=== PATIENT | female | born 1930 | race Two or more races ===

== ENCOUNTER 2016-11-02 11:14 | Emergency (ER) | payer OTHER ==
[~2016-11-02] VITALS: Ht 157.5 cm; Wt 56.7 kg
[~2016-11-02 11:14] MED LIST: AMLO1TAB15 PO; ATEN25TA PO; HYDR-971 PO; IBUP-1027 PO; LANS30CA PO; NAPR375T3 PO; OMEP40CA5 PO; OXYC-323 PO; PANT40TA3 PO; SIMV10TA3 PO; SIMV20TA3 PO; TRAM50TA PO; WARF5TAB PO; WARF5TAB7 PO
[2016-11-02 11:58] LABS: BASO # 0.1 x10^3/uL (0.0-0.2); BASO % 1 % (0-3); EOS % 2 % (0-3); HEMATOCRIT 37.8 % (36.0-47.0); HEMOGLOBIN 12.4 g/dL (12.0-15.5); LYMPH # 1.8 x10^3/uL (1.0-4.8); LYMPH % 23 % (24-48); MEAN CORPUSCULAR HEMOGLOBIN 28 pg (25-35); MEAN CORPUSCULAR HGB CONC 33 g/dL (31-37); MEAN CORPUSCULAR VOLUME 85 fL (79-100); MONO % 8 % (0-9); NEUT % 67 % (31-73); PLATELET COUNT 308 x10^3/uL (140-400); RED BLOOD COUNT 4.44 x10^6/uL (3.50-5.40); RED CELL DISTRIBUTION WIDTH 17.3 % (11.5-14.5); WHITE BLOOD COUNT 7.9 x10^3/uL (4.0-11.0)
[2016-11-02] MEDS ORDERED: HYDROCODONE/APAP 5/325MG TABLET. PO ONE (12:00)
[2016-11-02 12:04] LABS: CALCIUM 9.9 mg/dL (8.5-10.1); CREATININE 0.9 mg/dL (0.6-1.0); GFR 59.2; POTASSIUM 3.2 mmol/L (3.5-5.1)
--- NOTE | 2016-11-02 12:11 | RAD ---
EXAM: Chest, single view. HISTORY: Fall. COMPARISON: 02/14/2016. FINDINGS: A frontal view of the chest is obtained. There is no infiltrate, effusion or pneumothorax. The heart is normal in size. IMPRESSION: No acute pulmonary finding.
[2016-11-02] MEDS ORDERED: IOHEXOL 300 MG/ML 75 ML VIAL IV ONE (12:45)
--- NOTE | 2016-11-02 12:50 | RAD ---
EXAM: Head and cervical spine CT without contrast. HISTORY: Fall. TECHNIQUE: Computed tomographic images of the head were obtained without contrast. One or more of the following individualized dose reduction techniques were utilized for this examination: 1. Automated exposure control. 2. Adjustment of the mA and/or kV according to patient size. 3. Use of iterative reconstruction technique. COMPARISON: None. FINDINGS: Head: There is no hemorrhage. There is no mass effect or midline shift. There is no hydrocephalus. There are subtle areas of hypodensity within the cerebral white matter, likely due to chronic small vessel disease. There is a punctate calcification within the left occipital lobe cortex. No orbital lesion is seen. The paranasal sinuses and mastoid air cells are unremarkable. No calvarial lesion is seen. Cervical spine: There is slight anterolisthesis of C2 on C3 and retrolisthesis of C3 on C4. There is degenerative endplate remodeling with disc space narrowing and osteophytosis predominantly at C3-C4. A displaced fracture is seen. At C2-C3, there is a posterior central to left paracentral disc protrusion and osteophyte complex. There is no stenosis. At C3-C4, there is a posterior central disc protrusion and osteophyte complex superimposed on a disc bulge and endplate osteophytosis. There is uncovertebral arthropathy. There is mild right and moderate left foraminal stenosis. There is mild central canal stenosis. At C4-C5, there is a disc bulge and endplate remodeling. There is mild facet arthropathy. There is mild left foraminal stenosis. At C5-C6, there is a disc bulge. There is mild facet arthropathy. There is no stenosis. At C6-C7, there is a disc bulge. There is no stenosis. IMPRESSION: 1. No acute intracranial finding or evidence of acute cervical spine trauma. 2. Subtle areas of hypodensity within the cerebral white matter, likely due to chronic small vessel disease. 3. Multilevel degenerative change within the cervical spine, predominantly at C3-C4. This described in detail above.
--- NOTE | 2016-11-02 12:56 | RAD ---
EXAM: Abdomen and pelvis CT with intravenous contrast. HISTORY: Fall. TECHNIQUE: Computed tomographic images of the abdomen and pelvis were obtained following the administration of 60 cc Omnipaque 300 intravenous contrast. Multiplanar reformatting was performed. COMPARISON: 07/23/2015. FINDINGS: Evaluation of the lower thorax demonstrates left lower lobe groundglass opacity likely due to atelectasis. There is a small right diaphragmatic hernia containing fat a portion of the wall of the hepatic flexure of the colon. There is a tiny hiatal hernia. No focal hepatic lesion is seen. The gallbladder, spleen and adrenal glands are unremarkable. There is a calcification within the pancreatic body, vascular due to sequela of chronic pancreatitis. There are multiple small renal cysts. There is a 1.2 cm hypodense lesion within the anterior lower mid zone of the left kidney, with attenuation slightly greater than a simple cyst. There is renal cortical scarring. There is no hydronephrosis. The bladder is unremarkable. The appendix is normal in appearance. There is distal colonic diverticulosis without diverticulitis. There is no bowel obstruction. There is aortic and biiliac atherosclerosis. The uterus is surgically absent. No pathologically enlarged lymph node is seen. There are degenerative changes involving the spine. There are bone islands within L2 and L5. There is a hemangioma within T11. IMPRESSION: 1. No acute abdominal or pelvic finding. 2. Multiple small suspected renal cysts, one of which within the left kidney measures 1.2 cm with attenuation slightly greater than simple fluid. This may be a complex cyst. Renal sonography may be useful to confirm benignity. 3. Colonic diverticulosis. 4. Small right diaphragmatic hernia containing fat and a portion of the wall of the hepatic flexure of the colon. PQRS Compliance Statement: One or more of the following individualized dose reduction techniques were utilized for this examination: 1. Automated exposure control 2. Adjustment of the mA and/or kV according to patient size 3. Use of iterative reconstruction technique
[2016-11-02] MEDS ORDERED: ACET-704 PO (13:34)
--- NOTE | 2016-11-02 13:34 | PHYS DOC ---
Past Medical History Past Medical History: Cancer, High Cholesterol, Hypertension Past Surgical History: No Surgical History Additional Past Surgical Histo: Left mastectomy; Left hip;Left wrist Alcohol Use: None Drug Use: None Adult General Chief Complaint Chief Complaint: MECHANICAL FALL HPI HPI Patient is a 86 year old female who presents status post fall. She reports she had gotten up in her room this morning when her left leg gave out (has h/o problems with that leg), causing her to fall. No loss consciousness, she is unsure if she hit her head. She presents now with pain in her lower back, her neck, her right flank. She has not taken anything for pain. She does take Plavix but no anticoagulants (warfarin listed on med list is incorrect). Review of Systems Review of Systems Constitutional: Denies fever or chills Eyes: Denies change in visual acuity or eye pain HENT: Denies nasal congestion or sore throat Respiratory: Denies cough or shortness of breath Cardiovascular: Denies chest pain GI: Denies abdominal pain, nausea, vomiting, bloody stools or diarrhea : Denies dysuria or hematuria Musculoskeletal: Neck pain, low back pain, R flank pain Integument: Denies rash or skin lesions Neurologic: Denies headache, focal weakness or sensory changes Current Medications Current Medications Current Medications Medications (Trade) Dose Ordered Sig/Brennan Start Time Stop Time Status Last Admin Dose Admin Acetaminophen/ Hydrocodone Bitart (Lortab 5/325) 1 tab 1X ONCE 11/02/16 12:00 11/02/16 12:01 DC 11/02/16 11:57 1 TAB Iohexol (Omnipaque 300 Mg/ml) 75 ml 1X ONCE 11/02/16 12:45 11/02/16 12:46 DC 11/02/16 12:40 75 ML Potassium Chloride (Klor-Con) 40 meq 1X ONCE 11/02/16 14:15 11/02/16 14:15 DC Allergies Allergies Allergies Coded Allergies Type Severity Reaction Last Updated Verified No Known Drug Allergies 06/23/14 No Physical Exam Physical Exam Constitutional: Well developed, well nourished, no acute distress, non-toxic appearance HENT: Normocephalic, atraumatic, bilateral external ears normal Eyes: PERRL, EOMI, conjunctiva normal, no discharge Neck: Normal range of motion, no stridor. No midline TTP, no stepoff Cardiovascular: Heart rate normal, regular rhythm, no murmur Lungs & Thorax: Bilateral breath sounds clear to auscultation Abdomen: Bowel sounds normal, soft, non-distended, no TTP; R flank TTP, no skin lesion, no deformity noted Skin: Warm, dry, no erythema, no rash Back: Mild generalized lumbar tenderness, no stepoff or deformity noted; Extremities: LLE slightly shorter than RLE, no external rotation (recent L hip surgery); otherwise extremities without deformity or point TTP; distal pulses intact throughout Neurologic: Alert and oriented X 3, GCS 15, CN II-XII grossly intact, strength intact and symmetrical throughout, sensation to light touch intact throughout, no dystaxia noted Psychologic: Affect normal, judgement normal, mood normal Current Patient Data Vital Signs Vital Signs Date Time Temp Pulse Resp B/P Pulse Ox O2 Delivery O2 Flow Rate FiO2 11/02/16 13:40 75 20 152/77 100 Room Air 11/02/16 11:40 97.8 97.8 Lab Values Laboratory Tests Test 11/02/16 11:35 White Blood Count 7.9x10^3/uL (4.0-11.0) Red Blood Count 4.44x10^6/uL (3.50-5.40) Hemoglobin 12.4g/dL (12.0-15.5) Hematocrit 37.8% (36.0-47.0) Mean Corpuscular Volume 85fL (79-100) Mean Corpuscular Hemoglobin 28pg (25-35) Mean Corpuscular Hemoglobin Concent 33g/dL (31-37) Red Cell Distribution Width 17.3% (11.5-14.5) H Platelet Count 308x10^3/uL (140-400) Neutrophils (%) (Auto) 67% (31-73) Lymphocytes (%) (Auto) 23% (24-48) L Monocytes (%) (Auto) 8% (0-9) Eosinophils (%) (Auto) 2% (0-3) Basophils (%) (Auto) 1% (0-3) Neutrophils # (Auto) 5.3x10^3uL (1.8-7.7) Lymphocytes # (Auto) 1.8x10^3/uL (1.0-4.8) Monocytes # (Auto) 0.6x10^3/uL (0.0-1.1) Eosinophils # (Auto) 0.1x10^3/uL (0.0-0.7) Basophils # (Auto) 0.1x10^3/uL (0.0-0.2) Prothrombin Time 13.0SEC (11.7-14.0) Prothrombin Time INR 1.0 (0.8-1.1) Sodium Level 142mmol/L (136-145) Potassium Level 3.2mmol/L (3.5-5.1) L Chloride Level 102mmol/L (98-107) Carbon Dioxide Level 32mmol/L (21-32) Anion Gap 8 (6-14) Blood Urea Nitrogen 11mg/dL (7-20) Creatinine 0.9mg/dL (0.6-1.0) Estimated GFR (Cockcroft-Gault) 59.2 Glucose Level 147mg/dL (70-99) H Calcium Level 9.9mg/dL (8.5-10.1) Laboratory Tests 11/02/16 11:35 Laboratory Tests 11/02/16 11:35 EKG EKG [] Radiology/Procedures Radiology/Procedures CT head and c-spine: IMPRESSION: 1. No acute intracranial finding or evidence of acute cervical spine trauma. 2. Subtle areas of hypodensity within the cerebral white matter, likely due to chronic small vessel disease. 3. Multilevel degenerative change within the cervical spine, predominantly at C3-C4. This described in detail above. CT A/P: IMPRESSION: 1. No acute abdominal or pelvic finding. 2. Multiple small suspected renal cysts, one of which within the left kidney measures 1.2 cm with attenuation slightly greater than simple fluid. This may be a complex cyst. Renal sonography may be useful to confirm benignity. 3. Colonic diverticulosis. 4. Small right diaphragmatic hernia containing fat and a portion of the wall of the hepatic flexure of the colon. CXR: IMPRESSION: No acute pulmonary finding. Course & Med Decision Making Course & Med Decision Making Pertinent Labs and Imaging studies reviewed. (See chart for details) Patient is 86-year-old female who presents status post mechanical fall. Will obtain CT head and C-spine, CT abdomen/pelvis to my chest x-ray to evaluate for serious injury. Basic labs ordered. PT/INR ordered as med list has warfarin listed, however confirmed with family that she does not actually take warfarin but takes Plavix instead. Oral pain medication ordered. Imaging results as above , no significant injury noted. Discussed results with patient and family. Patient feeling much better at this time. Will discharge home with instructions for follow-up and return precautions. Dragon Disclaimer Dragon Disclaimer This electronic medical record was generated, in whole or in part, using a voice recognition dictation system. Departure Departure Impression: Primary Impression: Fall Disposition: HOME, SELF-CARE Condition: IMPROVED Referrals: KAUSHIK MONTEIRO MD (PCP) Patient Instructions: Fall Prevention and Home Safety Additional Instructions: Thank you for allowing us to provide care today in the Emergency Department. Take the provided medication as directed. Use caution when taking this medication as it can make you drowsy. Schedule a follow up appointment with your primary care doctor. Return promptly to the Emergency Department if you develop any new or concerning symptoms. Scripts Acetaminophen With Codeine (Tylenol With Codeine #3 Tablet)1 Each Tablet1 Tab PO PRN Q6HRS PRN PAIN #15 TAB Prov:MARV CDAET MD 11/02/16 MARV CADET MD Nov 02, 2016 13:34
[2016-11-02 13:40] VITALS: BP 152/77
[2016-11-02] MEDS ORDERED: POTASSIUM CHLORIDE 20 MEQ TABLET.ER. PO ONE (14:15)
== END 2016-11-02 13:50 | disposition home or self-care (01) ==
LOC: ER 11:14
DX: M54.5 Low back pain (principal); M54.2 Cervicalgia; R10.9 Unspecified abdominal pain; E78.00 Pure hypercholesterolemia, unspecified; I10 Essential (primary) hypertension; Z79.01 Long term (current) use of anticoagulants; W18.39XA Other fall on same level, initial encounter; Y93.89 Activity, other specified; Y92.89 Other specified places as the place of occurrence of the external cause; Y99.8 Other external cause status
CPT/HCPCS: 36415; 70450; 71010; 72125; 74177; 80048; 85027; 85610; 99285; Q9967

== ENCOUNTER → 2016-12-16 | Outpatient (CLI) | payer OTHER ==
[~2016-12-16] MED LIST changes: +ACET-704 PO; +WARF-78 PO; -WARF5TAB PO
--- NOTE | 2016-12-16 11:20 | RAD ---
DATE: 12/16/2016 EXAM: DIGITAL SCREEN RT W/CAD HISTORY: Routine screening, history of left mastectomy COMPARISON: 12/17/2015 This study was interpreted with the benefit of Computerized Aided Detection (CAD). FINDINGS: Breast Density: SCATTERED The breast parenchyma shows scattered fibroglandular densities. Breast parenchyma level B. There are no dominant suspicious masses, suspicious microcalcifications or evidence of architectural distortion. Benign-appearing calcifications identified in the right breast. IMPRESSION: Benign findings BI-RADS CATEGORY: 2 BENIGN FINDING RECOMMENDED FOLLOW-UP: 12M 12 MONTH FOLLOW-UP PQRS compliance statement: Patient information was entered into a reminder system with a target due date 12/16/2017 for the next mammogram. Mammography is a sensitive method for finding small breast cancers, but it does not detect them all and is not a substitute for careful clinical examination. A negative mammogram does not negate a clinically suspicious finding and should not result in delay in biopsying a clinically suspicious abnormality. "Our facility is accredited by the [employer] Mammography Program."
== END | disposition home or self-care (01) ==
LOC: MAMMO 10:09
PROVIDERS: ATTEND Family Medicine
DX: Z12.31 Encounter for screening mammogram for malignant neoplasm of breast (principal)
CPT/HCPCS: G0202; 77067

== ENCOUNTER 2017-03-25 18:05 | Inpatient (IN) | payer OTHER ==
[~2017-03-25] VITALS: Ht 157.5 cm; Wt 50.8 kg
[~2017-03-25 18:05] MED LIST changes: +AMLO10TA2 PO; +APIX5TAB PO; +CLOP75TA PO; +DILT240C2 PO; +PANT40TA5 PO; +VANC125C2 PO; +WARF1TAB74 PO
--- NOTE | 2017-03-25 19:42 | PHYS DOC ---
Past Medical History Past Medical History: Cancer, CHF, GERD, High Cholesterol, Hypertension Additional Past Medical Histor: pvd BREASTS CA BACK PAIN CATARACTS, DVT Past Surgical History: Hysterectomy Additional Past Surgical Histo: Left mastectomy; Left hip;Left wrist, Vascular surgery L leg, DVT R leg Alcohol Use: None Drug Use: None Adult General Chief Complaint Chief Complaint: WOUND CHECK HPI HPI Patient is a 86 year old female who presents with complaint of bleeding from her wound site. The patient was brought to the emergency department by EMS after patient had developed complications of bleeding from her wound VAC site. The patient was admitted to the hospital earlier this month where she was treated for an arterial occlusion in her right lower extremity with a right embolectomy done by vascular surgery. The patient developed complications of right lower extremity compartment syndrome requiring a 4 compartment fasciotomy. Patient was discharged 2 days ago with wound VAC in place. Patient was evaluated by her home health nurse after patient reported complications of a leak from her wound VAC. This progressed to bleeding at the wound site. The patient contacted Dr. Castro of vascular surgery who advised the patient come into the emergency department for evaluation. Patient denies any other symptoms at this time including shortness of breath, chest pain, lower extremity pain, or fever. Review of Systems Review of Systems Constitutional: Denies fever or chills [] Eyes: Denies change in visual acuity, redness, or eye pain [] HENT: Denies nasal congestion or sore throat [] Respiratory: Denies cough or shortness of breath [] Cardiovascular: Denies chest pain or edema [] GI: Denies abdominal pain, nausea, vomiting, bloody stools or diarrhea [] : Denies dysuria or hematuria [] Musculoskeletal: Denies back pain or joint pain [] Integument: Wound VAC not working, bleeding at one site [] Neurologic: Denies headache, focal weakness or sensory changes [] Allergies Allergies Allergies Coded Allergies Type Severity Reaction Last Updated Verified No Known Drug Allergies 03/16/17 No Physical Exam Physical Exam Constitutional: Alert, afebrile, no acute distress. [] HENT: Normocephalic, atraumatic, bilateral external ears normal, oropharynx moist, no oral exudates, nose normal. [] Eyes: PERRLA, EOMI, conjunctiva normal, no discharge. [] Neck: Normal range of motion, no tenderness, supple, no stridor. [] Cardiovascular:Heart rate regular rhythm, no murmur [] Lungs & Thorax: Bilateral breath sounds clear to auscultation [] Abdomen: Bowel sounds normal, soft, no tenderness, no masses, no pulsatile masses. [] Skin: Warm, dry, no erythema, no rash. [] Back: No tenderness, no CVA tenderness. [] Extremities: Right lower extremity Medial and lateral fasciotomy incision sites with overlying wound VAC, partial suction present with use of wound VAC, source of leak not visible on exam, moderate amount of collecting blood along the medial aspect of the dressings, capillary refill less than 2 seconds in all 5 digits of right foot. [] Neurologic: Alert and oriented X 3, normal motor function, normal sensory function, no focal deficits noted. [] Current Patient Data Vital Signs Vital Signs Date Time Temp Pulse Resp B/P (MAP) Pulse Ox O2 Delivery O2 Flow Rate FiO2 03/25/17 18:07 98.5 87 18 119/77 (91) 98 Room Air 98.5 EKG EKG Not performed [] Radiology/Procedures Radiology/Procedures Not performed [] Course & Med Decision Making Course & Med Decision Making Pertinent Labs and Imaging studies reviewed. (See chart for details) I contacted Dr. Castro regarding the patient's wound VAC. Due to lack of function and bleeding from the wound site, he recommended that the wound VAC be removed and that the wounds be redressed with saline soaked gauze, Kerlix, and wrapped with Fredy bandage which was completed in the emergency department. He also recommended that the patient be admitted to the hospital to continue observation of the wound for any recurrence of severe bleeding and for wound care consult to redress the wound VAC. The patient was admitted to Dr. Hernandez under observation care. Dragon Disclaimer Dragon Disclaimer This electronic medical record was generated, in whole or in part, using a voice recognition dictation system. Departure Departure Impression: Primary Impression: Wound, open with complication Additional Impression: Postoperative bleeding from incision Disposition: 01 HOME, SELF-CARE Admitting Physician: Fazal Hernandez Condition: STABLE Referrals: KAUSHIK MONTEIRO MD (PCP) Problem Qualifiers GRETA SILVEIRA MD Mar 25, 2017 19:42
[2017-03-25] MEDS ORDERED: ACETAMINOPHEN 325 MG TABLET. PO PRN (20:00)
[2017-03-25] MEDS ORDERED: MORPHINE SULFATE 2 MG/ML DISP.SYRIN. IV PRN (20:00)
[2017-03-25] MEDS ORDERED: hydrALAZINE 20 MG/ML VIAL. IVP PRN (20:00)
[2017-03-25] MEDS ORDERED: ONDANSETRON PF 4 MG/2 ML VIAL. IV PRN (20:00)
[2017-03-25] MEDS ORDERED: DOCUSATE SODIUM 100 MG CAPSULE. PO PRN (20:00)
--- NOTE | 2017-03-25 20:01 | PDOC1 ---
History and Physical Date of Admission Date of Admission 03/25/17 Identification/Chief Complaint Chief Complaint right leg bleeding Problems: Source Source: Chart review, Patient History of Present Illness History of Present Illness HPI HPI Patient is a 86 year old female who presents with complaint of bleeding from her wound site. pt speaks portuguese, grand daughter at bedside to translate. Pt was here since 01/2017 for bl leg PAD, s/p left leg vascular sx, currently has a left thigh open wound post recent i and D of necrosis tissues and has a wound vac on. Right leg also underwent embolectomy by vascular sx on 01/22, then developed complications with compartment syndome, readmitted last week and had a 4 compartment fasciotomy. Pt was dced home with wound vac on. Patient was evaluated by her home health nurse after patient reported complications of a leak from her wound VAC. This progressed to bleeding at the wound site. The patient contacted Dr. Castro of vascular surgery who advised the patient come into the emergency department for evaluation. Patient denies any other symptoms at this time including shortness of breath, chest pain, lower extremity pain, or fever. she was also [facility]. denies diarrhea to me now. Past Medical History Cardiovascular: HTN, Hyperlipidemia, Other Pulmonary: No pertinent hx CENTRAL NERVOUS SYSTEM: Periperal neuropathy GI: GERD Heme/Onc: Anemia NOS, Cancer, Other Hepatobiliary: No pertinent hx Psych: No pertinent hx Rheumatologic: No pertinent hx Infectious disease: No pertinent hx Renal/: No pertinent hx Endocrine: No pertinent hx Past Surgical History Past Surgical History: Arthroscopy, Mastectomy, Other Family History Family History: High Cholestrol, Hypertension Social History Smoke: No ALCOHOL: none Drugs: None Current Problem List Problem List Problems Medical Problems: (1) Postoperative bleeding from incision Status: Acute (2) Wound, open with complication Status: Acute Allergies Allergies Allergies Coded Allergies Type Severity Reaction Last Updated Verified No Known Drug Allergies 03/16/17 No ROS Review of System CONSTITUTIONAL: No fever or chills EYES: No recent changes SKIN: No rash or itching CARDIOVASCULAR: No chest pain, syncope, palpitations, or edema RESPIRATORY: No SOB or cough GASTROINTESTINAL: No nausea, vomiting or abdominal pain NEUROLOGICAL: No headaches or weakness ENDOCRINE: No cold or heat intolerance GENITOURINARY: No urgency or frequency of urination MUSCULOSKELETAL: No back pain or joint pain LYMPHATICS: No enlarged lymph nodes PSYCHIATRIC: No anxiety or depression Physical Exam Physical Exam GEN.: No apparent distress. Alert and oriented. HEENT: Head is normocephalic, atraumatic NECK: Supple. LUNGS: Clear to auscultation. HEART: RRR, S1, S2 present. Peripheral pulses intact ABDOMEN: Soft, nontender. Positive bowel sounds. EXTREMITIES: Without any cyanosis. bl lower ext feels cool. + left pedis pulse, cannot feel right foot pedis pulse. Right leg wound vac was changed by ERP, now has dressing wrapped. left thigh as a wound vac on. NEUROLOGIC: Normal speech, normal tone PSYCHIATRIC: Normal affect, normal mood. SKIN: No ulcerations Vitals Vitals Vital Signs Date Time Temp Pulse Resp B/P (MAP) Pulse Ox O2 Delivery O2 Flow Rate FiO2 03/25/17 18:07 98.5 87 18 119/77 (91) 98 Room Air 98.5 VTE Prophylaxis Ordered VTE Prophylaxis Devices: Yes VTE Pharmacological Prophylaxi: No Assessment/Plan Assessment/Plan right leg PAD recently s/p endarterectomy and then 4 compartment fasciotomy last week, with wound vac home, now complicated with bleeding recent BL leg PAD (Occlusions of the popliteal, anterior tibial and dorsalis pedis arteries ) post vascular fem-pop bypass sx 01/2017 left thigh open wound with wound vac PAFIB on AC htn stable systolic CHF with EF 35% recent cdiff h/o left BCa post sx and chemo gerd HLD h/o dvt rt leg plan: fu with vascular sx, card need to verify home meds, supposed to be on eliquis, but not warfarin too? hold AC, since bleeding for now wound vac removed by ERP, wound care consult cont vanco po qid isolation PTOT LUNA CRUZ MD Mar 25, 2017 20:01
[2017-03-25 21:02] LABS: BASO # 0.1 x10^3/uL (0.0-0.2); BASO % 1 % (0-3); EOS % 2 % (0-3); HEMATOCRIT 32.6 % (36.0-47.0); HEMOGLOBIN 10.4 g/dL (12.0-15.5); LYMPH # 1.2 x10^3/uL (1.0-4.8); LYMPH % 10 % (24-48); MEAN CORPUSCULAR HEMOGLOBIN 27 pg (25-35); MEAN CORPUSCULAR HGB CONC 32 g/dL (31-37); MEAN CORPUSCULAR VOLUME 83 fL (79-100); MONO % 9 % (0-9); NEUT % 78 % (31-73); PLATELET COUNT 670 x10^3/uL (140-400); RED BLOOD COUNT 3.93 x10^6/uL (3.50-5.40); WHITE BLOOD COUNT 11.5 x10^3/uL (4.0-11.0)
[2017-03-25 21:20] LABS: CALCIUM 8.4 mg/dL (8.5-10.1); CREATININE 0.9 mg/dL (0.6-1.0); GFR 59.2; POTASSIUM 4.1 mmol/L (3.5-5.1)
[2017-03-25 21:52] LABS: ANISOCYTOSIS MOD; OVALOCYTES OCC; PLT ESTIMATE INCREASED (ADEQUATE); POIKILOCYTOSIS SLIGHT
[2017-03-25] MEDS: SIMVASTATIN 10 MG TABLET PO SCH (22:06)
[2017-03-25] MEDS: VANCOMYCIN 125 MG/2.5 ML ORAL SOLUTION. PO SCH (22:06)
[2017-03-25 22:50] VITALS: BP 143/75
[2017-03-25 22:52] VITALS: BP 152/78
[2017-03-26 03:00] VITALS: BP 139/69
[2017-03-26] MEDS: traMADol 50 MG TABLET PO PRN ×3 (03:04→20:52)
[2017-03-26 06:32] LABS: BASO # 0.1 x10^3/uL (0.0-0.2); BASO % 1 % (0-3); EOS % 3 % (0-3); HEMOGLOBIN 9.6 g/dL (12.0-15.5); LYMPH # 1.2 x10^3/uL (1.0-4.8); LYMPH % 12 % (24-48); MEAN CORPUSCULAR HEMOGLOBIN 27 pg (25-35); MEAN CORPUSCULAR HGB CONC 33 g/dL (31-37); MEAN CORPUSCULAR VOLUME 82 fL (79-100); MONO % 12 % (0-9); NEUT % 72 % (31-73); PLATELET COUNT 649 x10^3/uL (140-400); RED BLOOD COUNT 3.52 x10^6/uL (3.50-5.40); RED CELL DISTRIBUTION WIDTH 21.2 % (11.5-14.5); WHITE BLOOD COUNT 9.8 x10^3/uL (4.0-11.0)
[2017-03-26 06:43] LABS: CALCIUM 8.4 mg/dL (8.5-10.1); CREATININE 0.8 mg/dL (0.6-1.0); GFR 67.8; POTASSIUM 4.1 mmol/L (3.5-5.1)
[2017-03-26 07:57] VITALS: BP 136/50
[2017-03-26] MEDS: PANTOPRAZOLE 40 MG TABLET.DR. PO SCH (09:06)
[2017-03-26] MEDS: VANCOMYCIN 125 MG/2.5 ML ORAL SOLUTION. PO SCH ×4 (09:08→22:21)
--- NOTE | 2017-03-26 10:46 | PDOC ---
SURGICAL PROGRESS NOTE Subjective pt without Complaints. Vital Signs Vital Signs Date Time Temp Pulse Resp B/P (MAP) Pulse Ox O2 Delivery O2 Flow Rate FiO2 03/26/17 09:07 Room Air 03/26/17 09:07 83 123/69 03/26/17 07:57 95.4 20 100 95.4 I&O Intake and Output 03/26/17 06:59 Output Total 0 ml Balance 0 ml Output Urine Total 0 ml # Voids 2 Extremities: Other (Dressings removed, Right calf.No evidence of active bleeding.Women's clean and granulating well.The foot is well perfused.) Labs Laboratory Tests Test 03/25/17 20:55 03/26/17 06:10 White Blood Count 11.5 x10^3/uL (4.0-11.0) 9.8 x10^3/uL (4.0-11.0) Red Blood Count 3.93 x10^6/uL (3.50-5.40) 3.52 x10^6/uL (3.50-5.40) Hemoglobin 10.4 g/dL (12.0-15.5) 9.6 g/dL (12.0-15.5) Hematocrit 32.6 % (36.0-47.0) 29.0 % (36.0-47.0) Mean Corpuscular Volume 83 fL (79-100) 82 fL (79-100) Mean Corpuscular Hemoglobin 27 pg (25-35) 27 pg (25-35) Mean Corpuscular Hemoglobin Concent 32 g/dL (31-37) 33 g/dL (31-37) Red Cell Distribution Width 21.0 % (11.5-14.5) 21.2 % (11.5-14.5) Platelet Count 670 x10^3/uL (140-400) 649 x10^3/uL (140-400) Neutrophils (%) (Auto) 78 % (31-73) 72 % (31-73) Lymphocytes (%) (Auto) 10 % (24-48) 12 % (24-48) Monocytes (%) (Auto) 9 % (0-9) 12 % (0-9) Eosinophils (%) (Auto) 2 % (0-3) 3 % (0-3) Basophils (%) (Auto) 1 % (0-3) 1 % (0-3) Neutrophils # (Auto) 9.0 x10^3uL (1.8-7.7) 7.0 x10^3uL (1.8-7.7) Lymphocytes # (Auto) 1.2 x10^3/uL (1.0-4.8) 1.2 x10^3/uL (1.0-4.8) Monocytes # (Auto) 1.0 x10^3/uL (0.0-1.1) 1.1 x10^3/uL (0.0-1.1) Eosinophils # (Auto) 0.3 x10^3/uL (0.0-0.7) 0.3 x10^3/uL (0.0-0.7) Basophils # (Auto) 0.1 x10^3/uL (0.0-0.2) 0.1 x10^3/uL (0.0-0.2) Platelet Estimate Increased (ADEQUATE) Poikilocytosis Slight Anisocytosis Mod Ovalocytes Occ Sodium Level 132 mmol/L (136-145) 133 mmol/L (136-145) Potassium Level 4.1 mmol/L (3.5-5.1) 4.1 mmol/L (3.5-5.1) Chloride Level 100 mmol/L (98-107) 101 mmol/L (98-107) Carbon Dioxide Level 24 mmol/L (21-32) 24 mmol/L (21-32) Anion Gap 8 (6-14) 8 (6-14) Blood Urea Nitrogen 11 mg/dL (7-20) 7 mg/dL (7-20) Creatinine 0.9 mg/dL (0.6-1.0) 0.8 mg/dL (0.6-1.0) Estimated GFR (Cockcroft-Gault) 59.2 67.8 Glucose Level 191 mg/dL (70-99) 138 mg/dL (70-99) Calcium Level 8.4 mg/dL (8.5-10.1) 8.4 mg/dL (8.5-10.1) Laboratory Tests Test 03/25/17 20:55 03/26/17 06:10 White Blood Count 11.5 x10^3/uL (4.0-11.0) 9.8 x10^3/uL (4.0-11.0) Red Blood Count 3.93 x10^6/uL (3.50-5.40) 3.52 x10^6/uL (3.50-5.40) Hemoglobin 10.4 g/dL (12.0-15.5) 9.6 g/dL (12.0-15.5) Hematocrit 32.6 % (36.0-47.0) 29.0 % (36.0-47.0) Mean Corpuscular Volume 83 fL (79-100) 82 fL (79-100) Mean Corpuscular Hemoglobin 27 pg (25-35) 27 pg (25-35) Mean Corpuscular Hemoglobin Concent 32 g/dL (31-37) 33 g/dL (31-37) Red Cell Distribution Width 21.0 % (11.5-14.5) 21.2 % (11.5-14.5) Platelet Count 670 x10^3/uL (140-400) 649 x10^3/uL (140-400) Neutrophils (%) (Auto) 78 % (31-73) 72 % (31-73) Lymphocytes (%) (Auto) 10 % (24-48) 12 % (24-48) Monocytes (%) (Auto) 9 % (0-9) 12 % (0-9) Eosinophils (%) (Auto) 2 % (0-3) 3 % (0-3) Basophils (%) (Auto) 1 % (0-3) 1 % (0-3) Neutrophils # (Auto) 9.0 x10^3uL (1.8-7.7) 7.0 x10^3uL (1.8-7.7) Lymphocytes # (Auto) 1.2 x10^3/uL (1.0-4.8) 1.2 x10^3/uL (1.0-4.8) Monocytes # (Auto) 1.0 x10^3/uL (0.0-1.1) 1.1 x10^3/uL (0.0-1.1) Eosinophils # (Auto) 0.3 x10^3/uL (0.0-0.7) 0.3 x10^3/uL (0.0-0.7) Basophils # (Auto) 0.1 x10^3/uL (0.0-0.2) 0.1 x10^3/uL (0.0-0.2) Platelet Estimate Increased (ADEQUATE) Poikilocytosis Slight Anisocytosis Mod Ovalocytes Occ Sodium Level 132 mmol/L (136-145) 133 mmol/L (136-145) Potassium Level 4.1 mmol/L (3.5-5.1) 4.1 mmol/L (3.5-5.1) Chloride Level 100 mmol/L (98-107) 101 mmol/L (98-107) Carbon Dioxide Level 24 mmol/L (21-32) 24 mmol/L (21-32) Anion Gap 8 (6-14) 8 (6-14) Blood Urea Nitrogen 11 mg/dL (7-20) 7 mg/dL (7-20) Creatinine 0.9 mg/dL (0.6-1.0) 0.8 mg/dL (0.6-1.0) Estimated GFR (Cockcroft-Gault) 59.2 67.8 Glucose Level 191 mg/dL (70-99) 138 mg/dL (70-99) Calcium Level 8.4 mg/dL (8.5-10.1) 8.4 mg/dL (8.5-10.1) Problem List Problems Medical Problems: (1) Postoperative bleeding from incision Status: Acute (2) Wound, open with complication Status: Acute Assessment/Plan Imp: 1, Bleeding, Right calf, most likely caused by coagulopathy.No evidence of deep arterial bleeding. 2.Patent bypass graft. Plan:1.Continue saline moistenedGauze dressings to the left calf.ResumeWound VAC tomorrow. Problems: MAGALIS WAGNER II, MD Mar 26, 2017 10:46
[2017-03-26 10:56] VITALS: BP 129/69
--- NOTE | 2017-03-26 12:09 | PDOC2 ---
CONSULT Date of Consult Date of Consult DATE: 03/26/17 TIME: 12:07 Reason for Consult Reason for Consult: Wound vac complications Referring Physician Referring Physician: Dr. Hernandez Identification/Chief Complaint Chief Complaint Wound complications (bleeding) Problems: History of Present Illness Reason for Visit: Ms. Kim is a pleasant 86 year old female who presents with bleeding from her wound site. Patient has recent history of R leg embolectomy on 01/22, where she later developed complications from compartment syndrome and had a 4 compartment fasciotomy. She was discharged home on 03/24 with wound vac. Patient returned to ER after developing bleeding from wound site. Patient seen and examined today, she denies CP, SOB, abdominal pain, or fever. Lower extremity pain controlled with pain medication. She does c/o of 1 day history of new onset R LE swelling, which she reports is improved today. Past Medical History Cardiovascular: HTN, Hyperlipidemia, Other Pulmonary: No pertinent hx CENTRAL NERVOUS SYSTEM: Periperal neuropathy GI: GERD Heme/Onc: Anemia NOS, Cancer, Other Hepatobiliary: No pertinent hx Psych: No pertinent hx Musculoskeletal: Osteoarthritis Rheumatologic: No pertinent hx Infectious disease: No pertinent hx Renal/: No pertinent hx Endocrine: No pertinent hx Past Surgical History Past Surgical History: Arthroscopy, Mastectomy, Other Family History Family History: High Cholestrol, Hypertension Social History No ALCOHOL: none Drugs: None Lives: with Family Domestic Violence: Neg Current Problem List Problem List Problems Medical Problems: (1) Postoperative bleeding from incision Status: Acute (2) Wound, open with complication Status: Acute Current Medications Current Medications Current Medications Diltiazem HCl (Cardizem 24hr Cd) 240 mg DAILY PO Last administered on 09:07; Start 03/26/17 at 09:00 Pantoprazole Sodium (Protonix) 40 mg DAILY07 PO Last administered on 03/26/17 09:06; Start 03/26/17 at 07:00 Simvastatin (Zocor) 10 mg QHS PO Last administered on 03/25/17 22:06; Start at 21:00 Vancomycin HCl 125 mg [id number] PO Last administered on 03/26/17 09:08; Start at 21:00 Acetaminophen (Tylenol) 650 mg PRN Q6HRS PRN PO FEVER; Start 03/25/17 at 20:00 Ondansetron HCl (Zofran) 4 mg PRN Q6HRS PRN IV NAUSEA/VOMITING; Start 03/25/17 at 20:00 Morphine Sulfate 2 mg PRN Q2HR PRN IV PAIN; Start 03/25/17 at 20:00 Tramadol HCl (Ultram) 50 mg PRN Q6HRS PRN PO PAIN Last administered on t 09:07; Start 03/25/17 at 20:00 Hydralazine HCl (Apresoline) 10 mg PRN Q4HRS PRN IVP ELEVATED BP, SEE COMMENTS ; Start 03/25/17 at 20:00 Docusate Sodium (Colace) 100 mg PRN DAILY PRN PO CONSTIPATION; Start 03/25/17 at 20:00 Active Scripts Active Vancomycin Hcl 125 Mg Capsule 125 Mg PO QID 14 Days Cardizem Cd (Diltiazem Hcl) 240 Mg Cap.er.24h 1 Cap PO DAILY Eliquis (Apixaban) 5 Mg Tablet 5 Mg PO [id number] 30 Days Reported Coumadin (Warfarin Sodium) 1 Mg Tablet 1 Tab PO DAILY Clopidogrel (Clopidogrel Bisulfate) 75 Mg Tablet 1 Tab PO DAILY Pantoprazole Sodium 40 Mg Tablet.dr 1 Tab PO DAILY Simvastatin 10 Mg Tablet 1 Tab PO QHS Allergies Allergies: Coded Allergies: No Known Drug Allergies (Unverified , 03/16/17) Physical Exam General: Alert, Cooperative, No acute distress Lungs: Clear to auscultation Heart: Other (regular rate and rhythm. Normal S1 and S2, no S3, no S4. No murmurs) Abdomen: Normal bowel sounds, Soft, No tenderness Extremities: Other (R LE swelling) Vitals VITALS Vital Signs Date Time Temp Pulse Resp B/P (MAP) Pulse Ox O2 Delivery O2 Flow Rate FiO2 03/26/17 10:56 98.8 95 18 129/69 (89) 98 Room Air 98.8 Labs Labs Laboratory Tests Test 03/25/17 20:55 03/26/17 06:10 White Blood Count 11.5 x10^3/uL (4.0-11.0) 9.8 x10^3/uL (4.0-11.0) Red Blood Count 3.93 x10^6/uL (3.50-5.40) 3.52 x10^6/uL (3.50-5.40) Hemoglobin 10.4 g/dL (12.0-15.5) 9.6 g/dL (12.0-15.5) Hematocrit 32.6 % (36.0-47.0) 29.0 % (36.0-47.0) Mean Corpuscular Volume 83 fL (79-100) 82 fL (79-100) Mean Corpuscular Hemoglobin 27 pg (25-35) 27 pg (25-35) Mean Corpuscular Hemoglobin Concent 32 g/dL (31-37) 33 g/dL (31-37) Red Cell Distribution Width 21.0 % (11.5-14.5) 21.2 % (11.5-14.5) Platelet Count 670 x10^3/uL (140-400) 649 x10^3/uL (140-400) Neutrophils (%) (Auto) 78 % (31-73) 72 % (31-73) Lymphocytes (%) (Auto) 10 % (24-48) 12 % (24-48) Monocytes (%) (Auto) 9 % (0-9) 12 % (0-9) Eosinophils (%) (Auto) 2 % (0-3) 3 % (0-3) Basophils (%) (Auto) 1 % (0-3) 1 % (0-3) Neutrophils # (Auto) 9.0 x10^3uL (1.8-7.7) 7.0 x10^3uL (1.8-7.7) Lymphocytes # (Auto) 1.2 x10^3/uL (1.0-4.8) 1.2 x10^3/uL (1.0-4.8) Monocytes # (Auto) 1.0 x10^3/uL (0.0-1.1) 1.1 x10^3/uL (0.0-1.1) Eosinophils # (Auto) 0.3 x10^3/uL (0.0-0.7) 0.3 x10^3/uL (0.0-0.7) Basophils # (Auto) 0.1 x10^3/uL (0.0-0.2) 0.1 x10^3/uL (0.0-0.2) Platelet Estimate Increased (ADEQUATE) Poikilocytosis Slight Anisocytosis Mod Ovalocytes Occ Sodium Level 132 mmol/L (136-145) 133 mmol/L (136-145) Potassium Level 4.1 mmol/L (3.5-5.1) 4.1 mmol/L (3.5-5.1) Chloride Level 100 mmol/L (98-107) 101 mmol/L (98-107) Carbon Dioxide Level 24 mmol/L (21-32) 24 mmol/L (21-32) Anion Gap 8 (6-14) 8 (6-14) Blood Urea Nitrogen 11 mg/dL (7-20) 7 mg/dL (7-20) Creatinine 0.9 mg/dL (0.6-1.0) 0.8 mg/dL (0.6-1.0) Estimated GFR (Cockcroft-Gault) 59.2 67.8 Glucose Level 191 mg/dL (70-99) 138 mg/dL (70-99) Calcium Level 8.4 mg/dL (8.5-10.1) 8.4 mg/dL (8.5-10.1) Laboratory Tests Test 03/25/17 20:55 03/26/17 06:10 White Blood Count 11.5 x10^3/uL (4.0-11.0) 9.8 x10^3/uL (4.0-11.0) Red Blood Count 3.93 x10^6/uL (3.50-5.40) 3.52 x10^6/uL (3.50-5.40) Hemoglobin 10.4 g/dL (12.0-15.5) 9.6 g/dL (12.0-15.5) Hematocrit 32.6 % (36.0-47.0) 29.0 % (36.0-47.0) Mean Corpuscular Volume 83 fL (79-100) 82 fL (79-100) Mean Corpuscular Hemoglobin 27 pg (25-35) 27 pg (25-35) Mean Corpuscular Hemoglobin Concent 32 g/dL (31-37) 33 g/dL (31-37) Red Cell Distribution Width 21.0 % (11.5-14.5) 21.2 % (11.5-14.5) Platelet Count 670 x10^3/uL (140-400) 649 x10^3/uL (140-400) Neutrophils (%) (Auto) 78 % (31-73) 72 % (31-73) Lymphocytes (%) (Auto) 10 % (24-48) 12 % (24-48) Monocytes (%) (Auto) 9 % (0-9) 12 % (0-9) Eosinophils (%) (Auto) 2 % (0-3) 3 % (0-3) Basophils (%) (Auto) 1 % (0-3) 1 % (0-3) Neutrophils # (Auto) 9.0 x10^3uL (1.8-7.7) 7.0 x10^3uL (1.8-7.7) Lymphocytes # (Auto) 1.2 x10^3/uL (1.0-4.8) 1.2 x10^3/uL (1.0-4.8) Monocytes # (Auto) 1.0 x10^3/uL (0.0-1.1) 1.1 x10^3/uL (0.0-1.1) Eosinophils # (Auto) 0.3 x10^3/uL (0.0-0.7) 0.3 x10^3/uL (0.0-0.7) Basophils # (Auto) 0.1 x10^3/uL (0.0-0.2) 0.1 x10^3/uL (0.0-0.2) Platelet Estimate Increased (ADEQUATE) Poikilocytosis Slight Anisocytosis Mod Ovalocytes Occ Sodium Level 132 mmol/L (136-145) 133 mmol/L (136-145) Potassium Level 4.1 mmol/L (3.5-5.1) 4.1 mmol/L (3.5-5.1) Chloride Level 100 mmol/L (98-107) 101 mmol/L (98-107) Carbon Dioxide Level 24 mmol/L (21-32) 24 mmol/L (21-32) Anion Gap 8 (6-14) 8 (6-14) Blood Urea Nitrogen 11 mg/dL (7-20) 7 mg/dL (7-20) Creatinine 0.9 mg/dL (0.6-1.0) 0.8 mg/dL (0.6-1.0) Estimated GFR (Cockcroft-Gault) 59.2 67.8 Glucose Level 191 mg/dL (70-99) 138 mg/dL (70-99) Calcium Level 8.4 mg/dL (8.5-10.1) 8.4 mg/dL (8.5-10.1) Assessment/Plan Assessment/Plan 1. R thigh open wound, s/p endarterectomy with later 4 compartment fasciotomy - Agree with wound care 2. HTN - Controlled, continue [employer] medications No further cardiac workup needed at this time. Thank you for letting me participate in the care of this patient. ANGIE QUICK MD Mar 26, 2017 12:09
--- NOTE | 2017-03-26 12:28 | PDOC ---
PROGRESS NOTES Chief Complaint Chief Complaint 1. Right leg wound bleeding 2. Compartment syndrome 3. HTN 4. C-diff 5. GERD History of Present Illness History of Present Illness Pt laying in bed. Notes improvement in leg swelling. Vitals Vitals Vital Signs Date Time Temp Pulse Resp B/P (MAP) Pulse Ox O2 Delivery O2 Flow Rate FiO2 03/26/17 10:56 98.8 95 18 129/69 (89) 98 Room Air 98.8 Physical Exam General: Alert, Cooperative, No acute distress Heart: Regular rate, Other (regular rate and rhythm. Normal S1 and S2, no S3, no S4. No murmurs) Lungs: Clear, Other (No acute pulmonary distress) Abdomen: Normal bowel sounds, Soft, No tenderness Extremities: No clubbing, Other (R LE swelling) Skin: No rashes, Other (Dry) Labs LABS Laboratory Tests Test 03/25/17 20:55 03/26/17 06:10 White Blood Count 11.5 x10^3/uL (4.0-11.0) 9.8 x10^3/uL (4.0-11.0) Red Blood Count 3.93 x10^6/uL (3.50-5.40) 3.52 x10^6/uL (3.50-5.40) Hemoglobin 10.4 g/dL (12.0-15.5) 9.6 g/dL (12.0-15.5) Hematocrit 32.6 % (36.0-47.0) 29.0 % (36.0-47.0) Mean Corpuscular Volume 83 fL (79-100) 82 fL (79-100) Mean Corpuscular Hemoglobin 27 pg (25-35) 27 pg (25-35) Mean Corpuscular Hemoglobin Concent 32 g/dL (31-37) 33 g/dL (31-37) Red Cell Distribution Width 21.0 % (11.5-14.5) 21.2 % (11.5-14.5) Platelet Count 670 x10^3/uL (140-400) 649 x10^3/uL (140-400) Neutrophils (%) (Auto) 78 % (31-73) 72 % (31-73) Lymphocytes (%) (Auto) 10 % (24-48) 12 % (24-48) Monocytes (%) (Auto) 9 % (0-9) 12 % (0-9) Eosinophils (%) (Auto) 2 % (0-3) 3 % (0-3) Basophils (%) (Auto) 1 % (0-3) 1 % (0-3) Neutrophils # (Auto) 9.0 x10^3uL (1.8-7.7) 7.0 x10^3uL (1.8-7.7) Lymphocytes # (Auto) 1.2 x10^3/uL (1.0-4.8) 1.2 x10^3/uL (1.0-4.8) Monocytes # (Auto) 1.0 x10^3/uL (0.0-1.1) 1.1 x10^3/uL (0.0-1.1) Eosinophils # (Auto) 0.3 x10^3/uL (0.0-0.7) 0.3 x10^3/uL (0.0-0.7) Basophils # (Auto) 0.1 x10^3/uL (0.0-0.2) 0.1 x10^3/uL (0.0-0.2) Platelet Estimate Increased (ADEQUATE) Poikilocytosis Slight Anisocytosis Mod Ovalocytes Occ Sodium Level 132 mmol/L (136-145) 133 mmol/L (136-145) Potassium Level 4.1 mmol/L (3.5-5.1) 4.1 mmol/L (3.5-5.1) Chloride Level 100 mmol/L (98-107) 101 mmol/L (98-107) Carbon Dioxide Level 24 mmol/L (21-32) 24 mmol/L (21-32) Anion Gap 8 (6-14) 8 (6-14) Blood Urea Nitrogen 11 mg/dL (7-20) 7 mg/dL (7-20) Creatinine 0.9 mg/dL (0.6-1.0) 0.8 mg/dL (0.6-1.0) Estimated GFR (Cockcroft-Gault) 59.2 67.8 Glucose Level 191 mg/dL (70-99) 138 mg/dL (70-99) Calcium Level 8.4 mg/dL (8.5-10.1) 8.4 mg/dL (8.5-10.1) Review of Systems Review of Systems C/o tenderness LLE C/o tiredness Assessment and Plan Assessmemt and Plan 1. Right leg wound bleeding: fu w/ vascular sx, wound care 2. Compartment syndrome: fu w/ vascular sx 3. HTN: continue to monitor 4. C-diff: consult GI 5. GERD: monitor 6. PTOT Problems: Comment Review of Relevant I have reviewed the following items belén (where applicable) has been applied. Labs Laboratory Tests Test 03/25/17 20:55 03/26/17 06:10 White Blood Count 11.5 x10^3/uL (4.0-11.0) 9.8 x10^3/uL (4.0-11.0) Red Blood Count 3.93 x10^6/uL (3.50-5.40) 3.52 x10^6/uL (3.50-5.40) Hemoglobin 10.4 g/dL (12.0-15.5) 9.6 g/dL (12.0-15.5) Hematocrit 32.6 % (36.0-47.0) 29.0 % (36.0-47.0) Mean Corpuscular Volume 83 fL (79-100) 82 fL (79-100) Mean Corpuscular Hemoglobin 27 pg (25-35) 27 pg (25-35) Mean Corpuscular Hemoglobin Concent 32 g/dL (31-37) 33 g/dL (31-37) Red Cell Distribution Width 21.0 % (11.5-14.5) 21.2 % (11.5-14.5) Platelet Count 670 x10^3/uL (140-400) 649 x10^3/uL (140-400) Neutrophils (%) (Auto) 78 % (31-73) 72 % (31-73) Lymphocytes (%) (Auto) 10 % (24-48) 12 % (24-48) Monocytes (%) (Auto) 9 % (0-9) 12 % (0-9) Eosinophils (%) (Auto) 2 % (0-3) 3 % (0-3) Basophils (%) (Auto) 1 % (0-3) 1 % (0-3) Neutrophils # (Auto) 9.0 x10^3uL (1.8-7.7) 7.0 x10^3uL (1.8-7.7) Lymphocytes # (Auto) 1.2 x10^3/uL (1.0-4.8) 1.2 x10^3/uL (1.0-4.8) Monocytes # (Auto) 1.0 x10^3/uL (0.0-1.1) 1.1 x10^3/uL (0.0-1.1) Eosinophils # (Auto) 0.3 x10^3/uL (0.0-0.7) 0.3 x10^3/uL (0.0-0.7) Basophils # (Auto) 0.1 x10^3/uL (0.0-0.2) 0.1 x10^3/uL (0.0-0.2) Platelet Estimate Increased (ADEQUATE) Poikilocytosis Slight Anisocytosis Mod Ovalocytes Occ Sodium Level 132 mmol/L (136-145) 133 mmol/L (136-145) Potassium Level 4.1 mmol/L (3.5-5.1) 4.1 mmol/L (3.5-5.1) Chloride Level 100 mmol/L (98-107) 101 mmol/L (98-107) Carbon Dioxide Level 24 mmol/L (21-32) 24 mmol/L (21-32) Anion Gap 8 (6-14) 8 (6-14) Blood Urea Nitrogen 11 mg/dL (7-20) 7 mg/dL (7-20) Creatinine 0.9 mg/dL (0.6-1.0) 0.8 mg/dL (0.6-1.0) Estimated GFR (Cockcroft-Gault) 59.2 67.8 Glucose Level 191 mg/dL (70-99) 138 mg/dL (70-99) Calcium Level 8.4 mg/dL (8.5-10.1) 8.4 mg/dL (8.5-10.1) Laboratory Tests Test 03/25/17 20:55 03/26/17 06:10 White Blood Count 11.5 x10^3/uL (4.0-11.0) 9.8 x10^3/uL (4.0-11.0) Red Blood Count 3.93 x10^6/uL (3.50-5.40) 3.52 x10^6/uL (3.50-5.40) Hemoglobin 10.4 g/dL (12.0-15.5) 9.6 g/dL (12.0-15.5) Hematocrit 32.6 % (36.0-47.0) 29.0 % (36.0-47.0) Mean Corpuscular Volume 83 fL (79-100) 82 fL (79-100) Mean Corpuscular Hemoglobin 27 pg (25-35) 27 pg (25-35) Mean Corpuscular Hemoglobin Concent 32 g/dL (31-37) 33 g/dL (31-37) Red Cell Distribution Width 21.0 % (11.5-14.5) 21.2 % (11.5-14.5) Platelet Count 670 x10^3/uL (140-400) 649 x10^3/uL (140-400) Neutrophils (%) (Auto) 78 % (31-73) 72 % (31-73) Lymphocytes (%) (Auto) 10 % (24-48) 12 % (24-48) Monocytes (%) (Auto) 9 % (0-9) 12 % (0-9) Eosinophils (%) (Auto) 2 % (0-3) 3 % (0-3) Basophils (%) (Auto) 1 % (0-3) 1 % (0-3) Neutrophils # (Auto) 9.0 x10^3uL (1.8-7.7) 7.0 x10^3uL (1.8-7.7) Lymphocytes # (Auto) 1.2 x10^3/uL (1.0-4.8) 1.2 x10^3/uL (1.0-4.8) Monocytes # (Auto) 1.0 x10^3/uL (0.0-1.1) 1.1 x10^3/uL (0.0-1.1) Eosinophils # (Auto) 0.3 x10^3/uL (0.0-0.7) 0.3 x10^3/uL (0.0-0.7) Basophils # (Auto) 0.1 x10^3/uL (0.0-0.2) 0.1 x10^3/uL (0.0-0.2) Platelet Estimate Increased (ADEQUATE) Poikilocytosis Slight Anisocytosis Mod Ovalocytes Occ Sodium Level 132 mmol/L (136-145) 133 mmol/L (136-145) Potassium Level 4.1 mmol/L (3.5-5.1) 4.1 mmol/L (3.5-5.1) Chloride Level 100 mmol/L (98-107) 101 mmol/L (98-107) Carbon Dioxide Level 24 mmol/L (21-32) 24 mmol/L (21-32) Anion Gap 8 (6-14) 8 (6-14) Blood Urea Nitrogen 11 mg/dL (7-20) 7 mg/dL (7-20) Creatinine 0.9 mg/dL (0.6-1.0) 0.8 mg/dL (0.6-1.0) Estimated GFR (Cockcroft-Gault) 59.2 67.8 Glucose Level 191 mg/dL (70-99) 138 mg/dL (70-99) Calcium Level 8.4 mg/dL (8.5-10.1) 8.4 mg/dL (8.5-10.1) Medications Current Medications Diltiazem HCl (Cardizem 24hr Cd) 240 mg DAILY PO Last administered on 09:07; Start 03/26/17 at 09:00 Pantoprazole Sodium (Protonix) 40 mg DAILY07 PO Last administered on 03/26/17 09:06; Start 03/26/17 at 07:00 Simvastatin (Zocor) 10 mg QHS PO Last administered on 03/25/17 22:06; Start at 21:00 Vancomycin HCl 125 mg [id number] PO Last administered on 03/26/17 09:08; Start at 21:00 Acetaminophen (Tylenol) 650 mg PRN Q6HRS PRN PO FEVER; Start 03/25/17 at 20:00 Ondansetron HCl (Zofran) 4 mg PRN Q6HRS PRN IV NAUSEA/VOMITING; Start 03/25/17 at 20:00 Morphine Sulfate 2 mg PRN Q2HR PRN IV PAIN; Start 03/25/17 at 20:00 Tramadol HCl (Ultram) 50 mg PRN Q6HRS PRN PO PAIN Last administered on t 09:07; Start 03/25/17 at 20:00 Hydralazine HCl (Apresoline) 10 mg PRN Q4HRS PRN IVP ELEVATED BP, SEE COMMENTS ; Start 03/25/17 at 20:00 Docusate Sodium (Colace) 100 mg PRN DAILY PRN PO CONSTIPATION; Start 03/25/17 at 20:00 Active Scripts Active Vancomycin Hcl 125 Mg Capsule 125 Mg PO QID 14 Days Cardizem Cd (Diltiazem Hcl) 240 Mg Cap.er.24h 1 Cap PO DAILY Eliquis (Apixaban) 5 Mg Tablet 5 Mg PO [id number] 30 Days Reported Coumadin (Warfarin Sodium) 1 Mg Tablet 1 Tab PO DAILY Clopidogrel (Clopidogrel Bisulfate) 75 Mg Tablet 1 Tab PO DAILY Pantoprazole Sodium 40 Mg Tablet.dr 1 Tab PO DAILY Simvastatin 10 Mg Tablet 1 Tab PO QHS Vitals/I & O Vital Sign - Last 24 Hours 03/25/17 03/25/17 03/25/17 03/25/17 18:07 18:30 19:00 19:30 Temp 98.5 98.5 Pulse 87 90 92 80 Resp 18 18 18 B/P (MAP) 119/77 (91) 138/65 (89) 125/77 (93) 138/70 (92) Pulse Ox 98 99 99 99 O2 Delivery Room Air Room Air 03/25/17 03/25/17 03/25/17 03/25/17 20:00 21:00 22:11 22:50 Temp 98.8 98.8 Pulse 78 80 95 Resp 18 18 18 B/P (MAP) 142/72 (95) 155/72 (99) 143/75 (97) Pulse Ox 97 98 100 O2 Delivery Room Air Room Air Room Air 03/25/17 03/26/17 03/26/17 03/26/17 22:52 03:00 03:04 07:57 Temp 98.7 98.5 95.4 98.7 98.5 95.4 Pulse 88 81 51 Resp 18 17 20 B/P (MAP) 152/78 (102) 139/69 (92) 136/50 (78) Pulse Ox 99 99 99 100 O2 Delivery Room Air Room Air Room Air Room Air 03/26/17 03/26/17 03/26/17 09:07 09:07 10:56 Temp 98.8 98.8 Pulse 83 95 Resp 18 B/P (MAP) 123/69 129/69 (89) Pulse Ox 98 O2 Delivery Room Air Room Air Intake and Output 03/25/17 03/25/17 03/26/17 15:00 23:00 07:00 Output Total 0 ml Balance 0 ml VICKIE HAILE III DO Mar 26, 2017 12:28
[2017-03-26] MEDS: IV NORMAL SALINE 1000ML BAG 1,000 ML IV SCH (13:57)
--- NOTE | 2017-03-26 14:06 | PDOC2 ---
GI CONSULT Reason For Consult: C Diff HPI: HPI: 86 y/o female w/ recent vascular surgeries and complications w/ LE wounds. Recently hospitalized, diagnosed w/ C Diff, sent home w/ PO vanco. Readmitted w / wound issues. Denies GI complaints. No pain. Diarrhea is slowing. Last BM yesterday. Eating well w/o n/v. No reflux or dysphagia. No bleeding. Colonoscopy normal last year. RN Jolie corcoran, family also present. PMH: PMH: HTN, HLD, neuropathy, anemia, breast cancer s/p mastectomy, PVD, DVT, A Fib, other per HPI FH: Family History: No pertinent hx Social History: Smoke: No ALCOHOL: none Drugs: None ROS: GEN: Denies fevers, chills, sweats HEENT: Denies blurred vision, sore throat CV: Denies chest pain RESP: Denies shortness of air, cough GI: Per HPI : Denies hematuria, dysuria ENDO: Denies weight changes NEURO: Denies confusion, dizziness MSK: Denies weakness, joint pain/swelling SKIN: RLE wound leaking/bleeding Vitals: Vitals: Vital Signs Date Time Temp Pulse Resp B/P (MAP) Pulse Ox O2 Delivery O2 Flow Rate FiO2 03/26/17 10:56 98.8 95 18 129/69 (89) 98 Room Air 98.8 Labs: Labs: Laboratory Tests Test 03/25/17 20:55 03/26/17 06:10 White Blood Count 11.5 x10^3/uL (4.0-11.0) 9.8 x10^3/uL (4.0-11.0) Red Blood Count 3.93 x10^6/uL (3.50-5.40) 3.52 x10^6/uL (3.50-5.40) Hemoglobin 10.4 g/dL (12.0-15.5) 9.6 g/dL (12.0-15.5) Hematocrit 32.6 % (36.0-47.0) 29.0 % (36.0-47.0) Mean Corpuscular Volume 83 fL (79-100) 82 fL (79-100) Mean Corpuscular Hemoglobin 27 pg (25-35) 27 pg (25-35) Mean Corpuscular Hemoglobin Concent 32 g/dL (31-37) 33 g/dL (31-37) Red Cell Distribution Width 21.0 % (11.5-14.5) 21.2 % (11.5-14.5) Platelet Count 670 x10^3/uL (140-400) 649 x10^3/uL (140-400) Neutrophils (%) (Auto) 78 % (31-73) 72 % (31-73) Lymphocytes (%) (Auto) 10 % (24-48) 12 % (24-48) Monocytes (%) (Auto) 9 % (0-9) 12 % (0-9) Eosinophils (%) (Auto) 2 % (0-3) 3 % (0-3) Basophils (%) (Auto) 1 % (0-3) 1 % (0-3) Neutrophils # (Auto) 9.0 x10^3uL (1.8-7.7) 7.0 x10^3uL (1.8-7.7) Lymphocytes # (Auto) 1.2 x10^3/uL (1.0-4.8) 1.2 x10^3/uL (1.0-4.8) Monocytes # (Auto) 1.0 x10^3/uL (0.0-1.1) 1.1 x10^3/uL (0.0-1.1) Eosinophils # (Auto) 0.3 x10^3/uL (0.0-0.7) 0.3 x10^3/uL (0.0-0.7) Basophils # (Auto) 0.1 x10^3/uL (0.0-0.2) 0.1 x10^3/uL (0.0-0.2) Platelet Estimate Increased (ADEQUATE) Poikilocytosis Slight Anisocytosis Mod Ovalocytes Occ Sodium Level 132 mmol/L (136-145) 133 mmol/L (136-145) Potassium Level 4.1 mmol/L (3.5-5.1) 4.1 mmol/L (3.5-5.1) Chloride Level 100 mmol/L (98-107) 101 mmol/L (98-107) Carbon Dioxide Level 24 mmol/L (21-32) 24 mmol/L (21-32) Anion Gap 8 (6-14) 8 (6-14) Blood Urea Nitrogen 11 mg/dL (7-20) 7 mg/dL (7-20) Creatinine 0.9 mg/dL (0.6-1.0) 0.8 mg/dL (0.6-1.0) Estimated GFR (Cockcroft-Gault) 59.2 67.8 Glucose Level 191 mg/dL (70-99) 138 mg/dL (70-99) Calcium Level 8.4 mg/dL (8.5-10.1) 8.4 mg/dL (8.5-10.1) Allergies: Coded Allergies: No Known Drug Allergies (Unverified , 03/16/17) Medications: Current Medications Medications (Trade) Dose Ordered Sig/Brennan Route PRN Reason Start Time Stop Time Status Last Admin Dose Admin Diltiazem HCl (Cardizem 24hr Cd) 240 mg DAILY PO 03/26/17 09:00 03/26/17 09:07 Pantoprazole Sodium (Protonix) 40 mg DAILY07 PO 03/26/17 07:00 03/26/17 09:06 Simvastatin (Zocor) 10 mg QHS PO 03/25/17 21:00 03/25/17 22:06 Vancomycin HCl 125 mg [id number] PO 03/25/17 21:00 03/26/17 13:56 Tramadol HCl (Ultram) 50 mg PRN Q6HRS PRN PO PAIN 03/25/17 20:00 03/26/17 09:07 Sodium Chloride 1,000 ml @ 50 mls/hr Q20H IV 03/26/17 12:45 03/26/17 13:57 Imaging: Imaging: Extensive past imaging in chart. PE: GEN: NAD, up to chair HEENT: Atraumatic, PERRL LUNGS: clear HEART: S1S2 ABD: NABS, S/ND/NT EXTREMITY: No edema SKIN: No rashes, no jaundice NEURO/PSYCH: A & O 3 A/P: A/P: Recent vascular surgeries, wound complications C Diff -- Improving. Continue PO vanc. YULIA MCKEON Mar 26, 2017 14:06
[2017-03-26 14:49] VITALS: BP 100/51
--- NOTE | 2017-03-26 14:49 | ACF ---
Admit Criteria Forms Admit Criteria Forms Admit Criteria Forms WOUND AND SKIN MANAGEMENT GR Clinical Indications for Procedure (Place 'X' for any and all applicable criteria): Surgery or other procedure covered by this guideline is indicated for ANY ONE of the following: [] I.Skin lesion excision or other surgery needed as indicated by ANY ONE of the following (1)(2) : [] a) Melanoma(3) [] b) Hidradenitis suppurativa(5)(6) [] c) Other malignant tumor (eg, basal or squamous cell carcinoma)(4) [] d) Benign tumor that is causing significant functional impairment [] e) Benign tumor with recurrent infection not responsive to nonsurgical therapy [] II. Pressure ulcer closure or other procedure needed; indications include ANY ONE of the following(7)(8)(9) : [] a) Stage III or IV ulcer in medically stable patient not healing with conservative management A [] b) Prolonged healing (> 12 weeks) will significantly interfere with other patient care needs. [] III. Burn care needed (thermal, electrical, chemical, or frostbite) as indicated by ANY ONE of the following(10)(11(12)(13): [] a) Partial thickness burn greater than 10% of body surface area [] c) Full thickness burn [] d) Significant boykin of hands, feet, face, perineum, genitalia, or major joints [] e) Significant electrical injury (14) [] f) Chemical boykin [] g) Circumferential boykin [] h) Significant inhalation injury [] i) Boykin in patients with pre-existing medical comorbidities that could complicate management (eg, heart failure, COPD, diabetes) [] j) Boykin with concomitant trauma requiring inpatient management [] IV. Skin grafting needed (skin, flap, pedicle, or other tissue transfer graft ) as indicated by ANY ONE of the following (14)(15): [] a) Large wounds or ulcers(7) [] b) Healing boykin(10)(16) [] c) Reconstructive surgery [] V. Skin disease or infection requiring inpatient care procedures; ANY ONE of the following (19)(20) : [] a) Severe pemphigus (eg, treatment of large body area required; steroids greater than 80 mg/day; immunosuppressive therapy commencement) [] b) Psoriasis requiring large area (eg, 50% of body surface area) complex care (eg, anthralin, tar) not performable at any other level of care B ( 21)(22) [] c) Toxic epidermal necrolysis [] d) Herpes zoster (disseminated or involving large area, (eg, whole trunk))(23) [] e) Generalized urticaria not responding to emergency treatment(24) [] f) Sanchez-Jony syndrome [] g) Neutrophilic dermatosis (eg, pyoderma gangrenosum, Sweet syndrome) requiring high-dose immunosuppression or wound debridement(29) [] h) Other disorder requiring inpatient level of care [] i) Herpes zoster (disseminated or involving large area, (eg, whole trunk))(23) [] j) Generalized urticaria not responding to emergency treatment(24) [] . Incision or drainage needed of skin or subcutaneous tissue(5)(17)(18) [X) VII. Wound debridement or complex care needed (eg, ulcer with necrosis)(14) (18)(19) [] VIII.Postoperative complex wound care (eg, necrotic surgical wound)(14) (18) [] IX. Trauma care needed as indicated by ANY ONE of the following: [] a) Traumatic amputation(29) [] b) Major skin loss (eg, degloving injury) [] c) Crush or contusion with possible compartment syndrome(29) [] d) Severe tissue destruction or necrosis from bite or sting(30)(31) The original [facility] content created by [employer] has been revised. The portions of the content which have been revised are identified through the use of italic text or in bold, and [facility] has neither reviewed nor approved the modified material. All other unmodified content is copyright [facility]. Please see references footnoted in the original [facility] [employer] edition 2016 BJ BAUTISTA Mar 26, 2017 14:49
[2017-03-26 19:00] VITALS: BP 115/63
[2017-03-26] MEDS ORDERED: MORPHINE SULFATE 4 MG/ML DISP.SYRIN. IV PRN (20:00)
[2017-03-26] MEDS: SIMVASTATIN 10 MG TABLET PO SCH (20:51)
[2017-03-26 23:04] VITALS: BP 115/64
[2017-03-27 03:00] VITALS: BP 117/63
[2017-03-27] MEDS: PANTOPRAZOLE 40 MG TABLET.DR. PO SCH (06:24)
[2017-03-27 07:00] VITALS: BP 119/68
--- NOTE | 2017-03-27 07:13 | PDOC ---
SURGICAL PROGRESS NOTE Subjective Doing very well this morning and her pain is controlled. She has no specific complaints for me this morning when examined Vital Signs Vital Signs Date Time Temp Pulse Resp B/P (MAP) Pulse Ox O2 Delivery O2 Flow Rate FiO2 03/27/17 03:00 98.2 77 17 117/63 (81) 98 Room Air 98.2 I&O Intake and Output 03/27/17 07:00 Intake Total 971 ml Balance 971 ml Intake Oral 471 ml Other 500 ml # Voids 2 Extremities: Other (her right lower extremity fasciotomy sites are clean, dry, and intact. The muscle is healthy-appearing and the wound edges are clean. She has normal vascular exam in the right lower extremity which is unchanged from her previous baseline, she has a palpable graft pulse in her left lower extremity) Labs Laboratory Tests Test 03/25/17 20:55 03/26/17 06:10 White Blood Count 11.5 x10^3/uL (4.0-11.0) 9.8 x10^3/uL (4.0-11.0) Red Blood Count 3.93 x10^6/uL (3.50-5.40) 3.52 x10^6/uL (3.50-5.40) Hemoglobin 10.4 g/dL (12.0-15.5) 9.6 g/dL (12.0-15.5) Hematocrit 32.6 % (36.0-47.0) 29.0 % (36.0-47.0) Mean Corpuscular Volume 83 fL (79-100) 82 fL (79-100) Mean Corpuscular Hemoglobin 27 pg (25-35) 27 pg (25-35) Mean Corpuscular Hemoglobin Concent 32 g/dL (31-37) 33 g/dL (31-37) Red Cell Distribution Width 21.0 % (11.5-14.5) 21.2 % (11.5-14.5) Platelet Count 670 x10^3/uL (140-400) 649 x10^3/uL (140-400) Neutrophils (%) (Auto) 78 % (31-73) 72 % (31-73) Lymphocytes (%) (Auto) 10 % (24-48) 12 % (24-48) Monocytes (%) (Auto) 9 % (0-9) 12 % (0-9) Eosinophils (%) (Auto) 2 % (0-3) 3 % (0-3) Basophils (%) (Auto) 1 % (0-3) 1 % (0-3) Neutrophils # (Auto) 9.0 x10^3uL (1.8-7.7) 7.0 x10^3uL (1.8-7.7) Lymphocytes # (Auto) 1.2 x10^3/uL (1.0-4.8) 1.2 x10^3/uL (1.0-4.8) Monocytes # (Auto) 1.0 x10^3/uL (0.0-1.1) 1.1 x10^3/uL (0.0-1.1) Eosinophils # (Auto) 0.3 x10^3/uL (0.0-0.7) 0.3 x10^3/uL (0.0-0.7) Basophils # (Auto) 0.1 x10^3/uL (0.0-0.2) 0.1 x10^3/uL (0.0-0.2) Platelet Estimate Increased (ADEQUATE) Poikilocytosis Slight Anisocytosis Mod Ovalocytes Occ Sodium Level 132 mmol/L (136-145) 133 mmol/L (136-145) Potassium Level 4.1 mmol/L (3.5-5.1) 4.1 mmol/L (3.5-5.1) Chloride Level 100 mmol/L (98-107) 101 mmol/L (98-107) Carbon Dioxide Level 24 mmol/L (21-32) 24 mmol/L (21-32) Anion Gap 8 (6-14) 8 (6-14) Blood Urea Nitrogen 11 mg/dL (7-20) 7 mg/dL (7-20) Creatinine 0.9 mg/dL (0.6-1.0) 0.8 mg/dL (0.6-1.0) Estimated GFR (Cockcroft-Gault) 59.2 67.8 Glucose Level 191 mg/dL (70-99) 138 mg/dL (70-99) Calcium Level 8.4 mg/dL (8.5-10.1) 8.4 mg/dL (8.5-10.1) Problem List Problems Medical Problems: (1) Postoperative bleeding from incision Status: Acute (2) Wound, open with complication Status: Acute Assessment/Plan Right lower extremity fasciotomy sites--the patient can be discharged with a wet -to-dry dressing and then her VAC dressing can be continued at home with Thursday , Thursday, Thursday VAC dressing changes. The patient should follow-up with Dr. Tuttle in 4-6 weeks for reevaluation of her surgical wounds. All questions were answered to the patient's and her members satisfaction. Benjamin Ulrich DO, FACS, RPVI Problems: BENJAMIN ULRICH Mar 27, 2017 07:13
[2017-03-27] MEDS: traMADol 50 MG TABLET PO PRN (08:38)
[2017-03-27] MEDS: IV NORMAL SALINE 1000ML BAG 1,000 ML IV SCH (08:38)
[2017-03-27] MEDS: VANCOMYCIN 125 MG/2.5 ML ORAL SOLUTION. PO SCH ×2 (08:42→13:04)
--- NOTE | 2017-03-27 10:43 | PDOC ---
PROGRESS NOTES Subjective Subjective Patient continues to improve. Pain controlled with medications. No other complaints. Objective Objective Vital Signs Date Time Temp Pulse Resp B/P (MAP) Pulse Ox O2 Delivery O2 Flow Rate FiO2 03/27/17 09:55 Room Air 03/27/17 08:37 79 119/68 03/27/17 07:00 98.1 18 97 98.1 Intake and Output 03/27/17 06:59 Intake Total 971 ml Balance 971 ml Intake Oral 471 ml Other 500 ml # Voids 2 Physical Exam Physical Exam No significant changes to cardiac exam. Assessment Assessment Problems Medical Problems: (1) Postoperative bleeding from incision Status: Acute (2) Wound, open with complication Status: Acute Plan Plan of Care 1. R thigh open wound, s/p endarterectomy with later 4 compartment fasciotomy - Agree with wound care 2. HTN - Controlled, continue [employer] medications No further cardiac workup needed at this time. Agree with current treatment plan. Comment Review of Relevant I have reviewed the following items belén (where applicable) has been applied. Labs Laboratory Tests Test 03/25/17 20:55 03/26/17 06:10 White Blood Count 11.5 x10^3/uL (4.0-11.0) 9.8 x10^3/uL (4.0-11.0) Red Blood Count 3.93 x10^6/uL (3.50-5.40) 3.52 x10^6/uL (3.50-5.40) Hemoglobin 10.4 g/dL (12.0-15.5) 9.6 g/dL (12.0-15.5) Hematocrit 32.6 % (36.0-47.0) 29.0 % (36.0-47.0) Mean Corpuscular Volume 83 fL (79-100) 82 fL (79-100) Mean Corpuscular Hemoglobin 27 pg (25-35) 27 pg (25-35) Mean Corpuscular Hemoglobin Concent 32 g/dL (31-37) 33 g/dL (31-37) Red Cell Distribution Width 21.0 % (11.5-14.5) 21.2 % (11.5-14.5) Platelet Count 670 x10^3/uL (140-400) 649 x10^3/uL (140-400) Neutrophils (%) (Auto) 78 % (31-73) 72 % (31-73) Lymphocytes (%) (Auto) 10 % (24-48) 12 % (24-48) Monocytes (%) (Auto) 9 % (0-9) 12 % (0-9) Eosinophils (%) (Auto) 2 % (0-3) 3 % (0-3) Basophils (%) (Auto) 1 % (0-3) 1 % (0-3) Neutrophils # (Auto) 9.0 x10^3uL (1.8-7.7) 7.0 x10^3uL (1.8-7.7) Lymphocytes # (Auto) 1.2 x10^3/uL (1.0-4.8) 1.2 x10^3/uL (1.0-4.8) Monocytes # (Auto) 1.0 x10^3/uL (0.0-1.1) 1.1 x10^3/uL (0.0-1.1) Eosinophils # (Auto) 0.3 x10^3/uL (0.0-0.7) 0.3 x10^3/uL (0.0-0.7) Basophils # (Auto) 0.1 x10^3/uL (0.0-0.2) 0.1 x10^3/uL (0.0-0.2) Platelet Estimate Increased (ADEQUATE) Poikilocytosis Slight Anisocytosis Mod Ovalocytes Occ Sodium Level 132 mmol/L (136-145) 133 mmol/L (136-145) Potassium Level 4.1 mmol/L (3.5-5.1) 4.1 mmol/L (3.5-5.1) Chloride Level 100 mmol/L (98-107) 101 mmol/L (98-107) Carbon Dioxide Level 24 mmol/L (21-32) 24 mmol/L (21-32) Anion Gap 8 (6-14) 8 (6-14) Blood Urea Nitrogen 11 mg/dL (7-20) 7 mg/dL (7-20) Creatinine 0.9 mg/dL (0.6-1.0) 0.8 mg/dL (0.6-1.0) Estimated GFR (Cockcroft-Gault) 59.2 67.8 Glucose Level 191 mg/dL (70-99) 138 mg/dL (70-99) Calcium Level 8.4 mg/dL (8.5-10.1) 8.4 mg/dL (8.5-10.1) Medications Current Medications Diltiazem HCl (Cardizem 24hr Cd) 240 mg DAILY PO Last administered on 08:37; Start 03/26/17 at 09:00 Pantoprazole Sodium (Protonix) 40 mg DAILY07 PO Last administered on 03/27/17 06:24; Start 03/26/17 at 07:00 Simvastatin (Zocor) 10 mg QHS PO Last administered on 03/26/17 20:51; Start at 21:00 Vancomycin HCl 125 mg [id number] PO Last administered on 03/27/17 08:42; Start at 21:00 Acetaminophen (Tylenol) 650 mg PRN Q6HRS PRN PO FEVER Last administered on 03/26 22:22; Start 03/25/17 at 20:00 Ondansetron HCl (Zofran) 4 mg PRN Q6HRS PRN IV NAUSEA/VOMITING; Start 03/25/17 at 20:00 Morphine Sulfate 2 mg PRN Q2HR PRN IV PAIN; Start 03/25/17 at 20:00; Status Cancel Tramadol HCl (Ultram) 50 mg PRN Q6HRS PRN PO PAIN Last administered on 08:38; Start 03/25/17 at 20:00 Hydralazine HCl (Apresoline) 10 mg PRN Q4HRS PRN IVP ELEVATED BP, SEE COMMENTS ; Start 03/25/17 at 20:00 Docusate Sodium (Colace) 100 mg PRN DAILY PRN PO CONSTIPATION; Start 03/25/17 at 20:00 Sodium Chloride 1,000 ml @ 50 mls/hr Q20H IV Last administered on 03/27/17 08 :38; Start 03/26/17 at 12:45 Morphine Sulfate 2 mg PRN Q2HR PRN IV PAIN; Start 03/26/17 at 20:00 Active Scripts Active Vancomycin Hcl 125 Mg Capsule 125 Mg PO QID 14 Days Cardizem Cd (Diltiazem Hcl) 240 Mg Cap.er.24h 1 Cap PO DAILY Eliquis (Apixaban) 5 Mg Tablet 5 Mg PO BID92 30 Days Reported Coumadin (Warfarin Sodium) 1 Mg Tablet 1 Tab PO DAILY Clopidogrel (Clopidogrel Bisulfate) 75 Mg Tablet 1 Tab PO DAILY Pantoprazole Sodium 40 Mg Tablet.dr 1 Tab PO DAILY Simvastatin 10 Mg Tablet 1 Tab PO QHS Vitals/I & O Vital Sign - Last 24 Hours 03/26/17 03/26/17 03/26/17 03/26/17 10:56 14:49 19:00 20:00 Temp 98.8 99.0 97.8 98.8 99.0 97.8 Pulse 95 75 62 Resp 18 20 17 B/P (MAP) 129/69 (89) 100/51 (67) 115/63 (80) Pulse Ox 98 98 94 O2 Delivery Room Air Room Air Room Air Room Air 03/26/17 03/26/17 03/26/17 03/27/17 20:52 22:56 23:04 03:00 Temp 101.5 98.2 101.5 98.2 Pulse 74 77 Resp 18 19 16 17 B/P (MAP) 115/64 (81) 117/63 (81) Pulse Ox 99 98 O2 Delivery Room Air Room Air Room Air 03/27/17 03/27/17 03/27/17 03/27/17 07:00 08:00 08:37 08:38 Temp 98.1 98.1 Pulse 79 79 Resp 18 B/P (MAP) 119/68 (85) 119/68 Pulse Ox 97 O2 Delivery Room Air Room Air Room Air 03/27/17 09:55 O2 Delivery Room Air Intake and Output 03/26/17 03/26/17 03/27/17 14:59 22:59 06:59 Intake Total 234 ml 237 ml 500 ml Balance 234 ml 237 ml 500 ml ANGIE QUICK MD Mar 27, 2017 10:43
[2017-03-27 11:00] VITALS: BP 118/59
--- NOTE | 2017-03-27 11:51 | PDOC ---
Subjective: Subjective: No GI complaints. Objective: Objective: D/w RN - no GI concerns. Note DC plans. Vital Signs: Vital Signs Date Time Temp Pulse Resp B/P (MAP) Pulse Ox O2 Delivery O2 Flow Rate FiO2 03/27/17 09:55 Room Air 03/27/17 08:37 79 119/68 03/27/17 07:00 98.1 18 97 98.1 PE: GEN: NAD LUNGS: clear HEART: RRR ABD: S/ND/NT NEURO/PSYCH: A & O 3 A/P: C Diff - diarrhea improved -- DC per primary, vascular. Previous ID note from last admission rec continuing PO vanc until 04/02/17. YULIA MCKEON Mar 27, 2017 11:51
--- NOTE | 2017-03-27 12:06 | PDOC ---
PROGRESS NOTES Chief Complaint Chief Complaint 1. Right leg wound bleeding 2. Compartment syndrome 3. HTN 4. C-diff 5. GERD History of Present Illness History of Present Illness Pt laying in bed, smiling & in good spirits. Notes that her leg is continuing to heal Vitals Vitals Vital Signs Date Time Temp Pulse Resp B/P (MAP) Pulse Ox O2 Delivery O2 Flow Rate FiO2 03/27/17 11:00 97.9 79 18 118/59 (78) 99 Room Air 97.9 Physical Exam General: Alert, Cooperative, No acute distress Heart: Regular rate, Other (regular rate and rhythm. Normal S1 and S2, no S3, no S4. No murmurs) Lungs: Clear, Other (No acute pulmonary distress noted) Abdomen: Normal bowel sounds, Soft, No tenderness Extremities: Other (Her right lower extremity (RLE) is CDI. Slightly tender) Skin: No rashes, Other (Dry) Review of Systems Review of Systems C/o RLE tenderness C/o tiredness Assessment and Plan Assessmemt and Plan 1. Right leg wound bleeding: fu w/ vascular sx, Continue wound care 2. Compartment syndrome: fu w/ vascular sx 3. HTN: continue to monitor 4. C-diff: consult GI & continue Abx 5. GERD: monitor 6. PTOT D/c to home health if ok w/ GI Problems: Comment Review of Relevant I have reviewed the following items belén (where applicable) has been applied. Labs Laboratory Tests Test 03/25/17 20:55 03/26/17 06:10 White Blood Count 11.5 x10^3/uL (4.0-11.0) 9.8 x10^3/uL (4.0-11.0) Red Blood Count 3.93 x10^6/uL (3.50-5.40) 3.52 x10^6/uL (3.50-5.40) Hemoglobin 10.4 g/dL (12.0-15.5) 9.6 g/dL (12.0-15.5) Hematocrit 32.6 % (36.0-47.0) 29.0 % (36.0-47.0) Mean Corpuscular Volume 83 fL (79-100) 82 fL (79-100) Mean Corpuscular Hemoglobin 27 pg (25-35) 27 pg (25-35) Mean Corpuscular Hemoglobin Concent 32 g/dL (31-37) 33 g/dL (31-37) Red Cell Distribution Width 21.0 % (11.5-14.5) 21.2 % (11.5-14.5) Platelet Count 670 x10^3/uL (140-400) 649 x10^3/uL (140-400) Neutrophils (%) (Auto) 78 % (31-73) 72 % (31-73) Lymphocytes (%) (Auto) 10 % (24-48) 12 % (24-48) Monocytes (%) (Auto) 9 % (0-9) 12 % (0-9) Eosinophils (%) (Auto) 2 % (0-3) 3 % (0-3) Basophils (%) (Auto) 1 % (0-3) 1 % (0-3) Neutrophils # (Auto) 9.0 x10^3uL (1.8-7.7) 7.0 x10^3uL (1.8-7.7) Lymphocytes # (Auto) 1.2 x10^3/uL (1.0-4.8) 1.2 x10^3/uL (1.0-4.8) Monocytes # (Auto) 1.0 x10^3/uL (0.0-1.1) 1.1 x10^3/uL (0.0-1.1) Eosinophils # (Auto) 0.3 x10^3/uL (0.0-0.7) 0.3 x10^3/uL (0.0-0.7) Basophils # (Auto) 0.1 x10^3/uL (0.0-0.2) 0.1 x10^3/uL (0.0-0.2) Platelet Estimate Increased (ADEQUATE) Poikilocytosis Slight Anisocytosis Mod Ovalocytes Occ Sodium Level 132 mmol/L (136-145) 133 mmol/L (136-145) Potassium Level 4.1 mmol/L (3.5-5.1) 4.1 mmol/L (3.5-5.1) Chloride Level 100 mmol/L (98-107) 101 mmol/L (98-107) Carbon Dioxide Level 24 mmol/L (21-32) 24 mmol/L (21-32) Anion Gap 8 (6-14) 8 (6-14) Blood Urea Nitrogen 11 mg/dL (7-20) 7 mg/dL (7-20) Creatinine 0.9 mg/dL (0.6-1.0) 0.8 mg/dL (0.6-1.0) Estimated GFR (Cockcroft-Gault) 59.2 67.8 Glucose Level 191 mg/dL (70-99) 138 mg/dL (70-99) Calcium Level 8.4 mg/dL (8.5-10.1) 8.4 mg/dL (8.5-10.1) Medications Current Medications Diltiazem HCl (Cardizem 24hr Cd) 240 mg DAILY PO Last administered on 08:37; Start 03/26/17 at 09:00 Pantoprazole Sodium (Protonix) 40 mg DAILY07 PO Last administered on 03/27/17 06:24; Start 03/26/17 at 07:00 Simvastatin (Zocor) 10 mg QHS PO Last administered on 03/26/17 20:51; Start at 21:00 Vancomycin HCl 125 mg [id number] PO Last administered on 03/27/17 08:42; Start at 21:00 Acetaminophen (Tylenol) 650 mg PRN Q6HRS PRN PO FEVER Last administered on 03/26 22:22; Start 03/25/17 at 20:00 Ondansetron HCl (Zofran) 4 mg PRN Q6HRS PRN IV NAUSEA/VOMITING; Start 03/25/17 at 20:00 Morphine Sulfate 2 mg PRN Q2HR PRN IV PAIN; Start 03/25/17 at 20:00; Status Cancel Tramadol HCl (Ultram) 50 mg PRN Q6HRS PRN PO PAIN Last administered on 08:38; Start 03/25/17 at 20:00 Hydralazine HCl (Apresoline) 10 mg PRN Q4HRS PRN IVP ELEVATED BP, SEE COMMENTS ; Start 03/25/17 at 20:00 Docusate Sodium (Colace) 100 mg PRN DAILY PRN PO CONSTIPATION; Start 03/25/17 at 20:00 Sodium Chloride 1,000 ml @ 50 mls/hr Q20H IV Last administered on 03/27/17t 08 :38; Start 03/26/17 at 12:45 Morphine Sulfate 2 mg PRN Q2HR PRN IV PAIN; Start 03/26/17 at 20:00 Active Scripts Active Vancomycin Hcl 125 Mg Capsule 125 Mg PO QID 14 Days Eliquis (Apixaban) 5 Mg Tablet 5 Mg PO BID92 30 Days Reported Coumadin (Warfarin Sodium) 1 Mg Tablet 1 Tab PO DAILY Clopidogrel (Clopidogrel Bisulfate) 75 Mg Tablet 1 Tab PO DAILY Pantoprazole Sodium 40 Mg Tablet. 1 Tab PO DAILY Simvastatin 10 Mg Tablet 1 Tab PO QHS Vitals/I & O Vital Sign - Last 24 Hours 03/26/17 03/26/17 03/26/17 03/26/17 14:49 19:00 20:00 20:52 Temp 99.0 97.8 99.0 97.8 Pulse 75 62 Resp 20 17 18 B/P (MAP) 100/51 (67) 115/63 (80) Pulse Ox 98 94 O2 Delivery Room Air Room Air Room Air Room Air 03/26/17 03/26/17 03/27/17 03/27/17 22:56 23:04 03:00 07:00 Temp 101.5 98.2 98.1 101.5 98.2 98.1 Pulse 74 77 79 Resp 19 16 17 18 B/P (MAP) 115/64 (81) 117/63 (81) 119/68 (85) Pulse Ox 99 98 97 O2 Delivery Room Air Room Air Room Air 03/27/17 03/27/17 03/27/17 03/27/17 08:00 08:37 08:38 09:55 Pulse 79 B/P (MAP) 119/68 O2 Delivery Room Air Room Air Room Air 03/27/17 11:00 Temp 97.9 97.9 Pulse 79 Resp 18 B/P (MAP) 118/59 (78) Pulse Ox 99 O2 Delivery Room Air Intake and Output 03/26/17 03/26/17 03/27/17 15:00 23:00 07:00 Intake Total 234 ml 237 ml 500 ml Balance 234 ml 237 ml 500 ml VICKIE HAILE III DO Mar 27, 2017 12:06
== END 2017-03-27 14:53 | disposition home health service (06) | DRG 920 ==
LOC: ER 18:05 → 5 SOUTH 19:07 → OBSVTOIN 03-26 14:23
PROVIDERS: ADMIT Internal Medicine; ATTEND Internal Medicine
DX: L76.22 Postprocedural hemorrhage of skin and subcutaneous tissue following other procedure (principal); I50.20 Unspecified systolic (congestive) heart failure; G62.9 Polyneuropathy, unspecified; I48.0 Paroxysmal atrial fibrillation; I11.0 Hypertensive heart disease with heart failure; I73.9 Peripheral vascular disease, unspecified; E78.5 Hyperlipidemia, unspecified; H26.9 Unspecified cataract; K21.9 Gastro-esophageal reflux disease without esophagitis; M19.90 Unspecified osteoarthritis, unspecified site; Y83.8 Other surgical procedures as the cause of abnormal reaction of the patient, or of later complication, without mention of misadventure at the time of the procedure; E78.00 Pure hypercholesterolemia, unspecified; Z85.3 Personal history of malignant neoplasm of breast; Z82.49 Family history of ischemic heart disease and other diseases of the circulatory system; Z90.10 Acquired absence of unspecified breast and nipple; Z90.710 Acquired absence of both cervix and uterus; Z86.718 Personal history of other venous thrombosis and embolism; Z79.01 Long term (current) use of anticoagulants
CPT/HCPCS: 36415; 51701; 80048; 85025; G0378; G0379; J7030; 97530; 97535; 99285-25

== ENCOUNTER → 2017-03-30 | Outpatient (CLI) | payer OTHER ==
[2017-03-27 11:00] VITALS: BP 118/59
== END | disposition home or self-care (01) ==
LOC: PMGWOUND 08:30
PROVIDERS: ATTEND Emergency Medicine Undersea and Hyperbaric Medicine
DX: T81.31XA Disruption of external operation (surgical) wound, not elsewhere classified, initial encounter (principal); K21.9 Gastro-esophageal reflux disease without esophagitis; E78.00 Pure hypercholesterolemia, unspecified; I11.0 Hypertensive heart disease with heart failure; I50.9 Heart failure, unspecified; I73.9 Peripheral vascular disease, unspecified; Z85.3 Personal history of malignant neoplasm of breast; Y83.8 Other surgical procedures as the cause of abnormal reaction of the patient, or of later complication, without mention of misadventure at the time of the procedure
CPT/HCPCS: 97597; 97598; 97605

== ENCOUNTER → 2017-04-13 | Outpatient (CLI) | payer OTHER ==
[2017-03-27 11:00] VITALS: BP 118/59
[~2017-04-13] MED LIST changes: +NAPR-695 PO; -NAPR375T3 PO
== END | disposition home or self-care (01) ==
LOC: PMGWOUND 09:21
PROVIDERS: ATTEND Emergency Medicine Undersea and Hyperbaric Medicine
DX: T81.31XD Disruption of external operation (surgical) wound, not elsewhere classified, subsequent encounter (principal); K21.9 Gastro-esophageal reflux disease without esophagitis; Z85.3 Personal history of malignant neoplasm of breast; E78.00 Pure hypercholesterolemia, unspecified; E11.51 Type 2 diabetes mellitus with diabetic peripheral angiopathy without gangrene; I11.0 Hypertensive heart disease with heart failure; I50.9 Heart failure, unspecified; E11.36 Type 2 diabetes mellitus with diabetic cataract; E78.5 Hyperlipidemia, unspecified; Z86.718 Personal history of other venous thrombosis and embolism; M19.90 Unspecified osteoarthritis, unspecified site; I25.10 Atherosclerotic heart disease of native coronary artery without angina pectoris; Y83.8 Other surgical procedures as the cause of abnormal reaction of the patient, or of later complication, without mention of misadventure at the time of the procedure
CPT/HCPCS: 97606

== ENCOUNTER → 2017-12-18 | Outpatient (CLI) | payer OTHER | END | disposition home or self-care (01) | LOC: MAMMO 14:12 | DX: I11.0 Hypertensive heart disease with heart failure (principal); Z12.31 Encounter for screening mammogram for malignant neoplasm of breast (principal); I50.9 Heart failure, unspecified; E78.5 Hyperlipidemia, unspecified | CPT/HCPCS: 77067 ==

== ENCOUNTER → 2018-12-20 | Outpatient (CLI) | payer OTHER ==
[~2018-12-20] MED LIST changes: -AMLO10TA2 PO; +AMLO10TA8 PO; +HYDR-3164 PO; -HYDR-971 PO; -OXYC-323 PO; +OXYC1TAB15 PO; -VANC125C2 PO; +VANC125C3 PO; +WARF-31 PO; -WARF5TAB7 PO
--- NOTE | 2018-12-21 09:47 | RAD ---
DATE: 12/20/2018 EXAM: DIGITAL SCREEN RT W/CAD HISTORY: Right breast screening, previous left breast cancer COMPARISON: 12/18/2017 This study was interpreted with the benefit of Computerized Aided Detection (CAD). Breast Density: FATTY The breast parenchyma is primarily fatty replaced. Breast parenchyma level density A. FINDINGS: No new or enlarging breast densities are seen. Numerous benign type calcifications are present. No suspicious microcalcifications have developed. IMPRESSION: Stable mammograms without evidence of malignancy. BI-RADS CATEGORY: 2 BENIGN FINDING(S) RECOMMENDED FOLLOW-UP: 12M 12 MONTH FOLLOW-UP PQRS compliance statement: Patient information was entered into a reminder system with a target due date for the next mammogram. Mammography is a sensitive method for finding small breast cancers, but it does not detect them all and is not a substitute for careful clinical examination. A negative mammogram does not negate a clinically suspicious finding and should not result in delay in biopsying a clinically suspicious abnormality. "Our facility is accredited by the [employer] Mammography Program."
== END | disposition home or self-care (01) ==
LOC: MAMMO 15:00
PROVIDERS: ATTEND Family Medicine
DX: Z12.31 Encounter for screening mammogram for malignant neoplasm of breast (principal); N64.89 Other specified disorders of breast; Z85.3 Personal history of malignant neoplasm of breast
CPT/HCPCS: 77067